=== PATIENT | female | born 2000 | race Caucasian/White ===

== ENCOUNTER 2020-02-06 13:31 | Emergency (ER) | payer BC ==
--- NOTE | 2020-02-06 14:34 | ER Document Report ---
ED General - General Chief Complaint: Vomiting/Diarrhea Stated Complaint: MIGRAINE/DIARRHEA/VOMITING Time Seen by Provider: 02/06/20 14:33 - HPI Notes: 19-year-old female presents with headache and diarrhea. Patient states that she has been experiencing a severe migraine headache for the past 2 days, states that the pain is located all over her head, radiates backwards. She has had some photosensitivity and phonosensitivity intermittently over the past 2 days. Occasionally she will feel a throbbing sensation as well. No trauma. No meds at home. Has a history of migraines but states it is been a long time since she last had one. States she additionally had onset of diarrhea 2 days ago as well, no blood in stool, having some lower abdominal cramping as well. No vomiting. No dysuria. States that her temperature at home was 100.3F. 8 weeks . - Related Data Allergies/Adverse Reactions: No Known Allergies Allergy (Verified 02/06/20 14:30) Past Medical History - General Information source: Patient - Social History Smoking Status: Unknown if Ever Smoked Family History: Reviewed & Not Pertinent Review of Systems - Review of Systems Constitutional: denies: Fever EENT: denies: Blurred vision Cardiovascular: denies: Chest pain Respiratory: denies: Cough, Short of breath Gastrointestinal: Abdominal pain, Diarrhea Genitourinary: denies: Dysuria Female Genitourinary: Vaginal bleeding Skin: No symptoms reported Hematologic/Lymphatic: No symptoms reported Neurological/Psychological: Headaches. denies: Weakness Physical Exam - Vital signs Vitals: Temp Pulse Resp BP Pulse Ox 97.7 F 98 18 127/69 H 99 02/06/20 14:10 02/06/20 14:10 02/06/20 14:10 02/06/20 14:10 02/06/20 14:10 - General General appearance: Alert In distress: None - HEENT Head: Normocephalic, Atraumatic Conjunctiva: Normal Eyelashes: Normal Pupils: PERRL - Respiratory Breath sounds: Normal - Cardiovascular Rhythm: Regular Heart sounds: Normal auscultation - Abdominal Distension: No distension Bowel sounds: Normal Tenderness: Nontender - Extremities General upper extremity: Normal ROM General lower extremity: Normal ROM. No: Edema - Neurological Neuro grossly intact: Yes Cognition: Normal Orientation: AAOx4 Speech: Normal Cranial nerves: Normal Cerebellar coordination: Normal Motor strength normal: LUE, RUE, LLE, RLE Sensory: Normal - Psychological Associated symptoms: Normal affect - Skin Skin Temperature: Warm Course - Re-evaluation Re-evalutation: 02/06/20 14:50 19-year-old female with headache and diarrhea, onset 2 days ago. She is afebrile, nontoxic-appearing, neurologically intact, abdomen without any focal areas of tenderness. Migraine headache does sound like her typical headaches, will treat with Compazine, Benadryl and fluids. Would not suspect meningitis or intracranial abnormality at this time given her exam today. Diarrhea could be viral in nature. Will obtain COVID swab. Trial bentyl. Symptomatology potentially could be related to recently restarting menstrual cycle after delivering about 8 weeks ago. Blood pressure is okay. We will also check labs and urine. 02/06/20 16:44 Labs reviewed. No significant leukocytosis. No acute anemia. Electrolytes within normal limits. Creatinine within normal limits. No elevation of T bili, LFTs okay, lipase negative. UA with blood, on menstrual cycle. UA not overtly suggestive of UTI, however given pyuria will send for culture, no symptoms. negative. 02/06/20 17:00 Reevaluated patient. She reports she is feeling much better. Discussed that, test is pending, she is to self quarantine until results. Encouraged her to continue Motrin for cramping. Will hold on prescribing Bentyl given that she is breast-feeding. Return precautions given, stable time discharge. - Vital Signs Vital signs: Temp Pulse Resp BP Pulse Ox 97.7 F 98 18 127/69 H 99 02/06/20 14:10 02/06/20 14:10 02/06/20 14:10 02/06/20 14:10 02/06/20 14:10 - Laboratory Result Diagrams: 02/06/20 15:45 02/06/20 15:45 Laboratory results interpreted by me: 02/06/20 02/06/20 02/06/20 15:20 15:45 15:45 WBC 10.8 H Lymph % (Auto) 8.7 L Absolute Neuts (auto) 9.0 H Seg Neutrophils % 83.3 H ALT 40 H Urine Protein 100 H Urine Ketones 80 H Urine Blood LARGE H Urine Urobilinogen 2.0 H Ur Leukocyte Esterase TRACE H Discharge - Discharge Clinical Impression: Diarrhea in adult patient Migraine Qualifiers: Migraine type: unspecified Status migrainosus presence: without status migrainosus Intractability: not intractable Qualified Code(s): G43.909 - Migraine, unspecified, not intractable, without status migrainosus Condition: Stable Disposition: HOME, SELF-CARE Additional Instructions: Continue Tylenol and ibuprofen for symptoms. Be sure to stay well-hydrated. Please well up with your [facility] return to the emergency department for any concerning worsening symptoms.
[2020-02-06] MEDS ORDERED: PROCHLORPERAZINE EDISYLATE INJ 10 MG/2 ML VIAL IV ONE (14:43)
[2020-02-06] MEDS ORDERED: DIPHENHYDRAMINE HCL 50 MG/ML VIAL IV ONE (14:43)
[2020-02-06] MEDS ORDERED: RINGERS SOLUTION,LACTATED 1,000 ML IV ONE (14:44)
[2020-02-06] MEDS ORDERED: DICYCLOMINE HCL 20 MG TABLET PO ONE (14:45)
[2020-02-06 16:01] LABS: APPEARANCE,URINE CLOUDY; BILIRUBIN,URINE NEGATIVE (NEGATIVE); GLUCOSE, URINE NEGATIVE (NEGATIVE); KETONES,URINE 80 mg/dL (NEGATIVE); LEUKOCYTE ESTERASE,URINE TRACE (NEGATIVE); NITRITE,URINE NEGATIVE (NEGATIVE); PROTEIN,URINE 100 mg/dL (NEGATIVE); URINE SPECIFIC GRAVITY 1.026
[2020-02-06 16:02] LABS: COLOR,URINE DARK YELLOW
[2020-02-06 16:03] LABS: ABSOLUTE LYMPHOCYTES (AUTO) 0.9 10^3/uL (0.5-4.7); ABSOLUTE MONOCYTES (AUTO) 0.8 10^3/uL (0.1-1.4); BASOPHILS % (AUTO) 0.4 % (0-2); EOSINOPHILS % (AUTO) 0.4 % (0-6); HEMATOCRIT 39.4 % (36.0-47.0); HEMOGLOBIN 13.2 g/dL (12.0-15.5); LYMPHOCYTES % (AUTO) 8.7 % (13-45); MEAN CORPUSCULAR HEMOGLOBIN 29.2 pg (27.0-33.4); MEAN CORPUSCULAR HGB CONC 33.6 g/dL (32.0-36.0); MEAN CORPUSCULAR VOLUME 87 fl (80-97); MONOCYTES % (AUTO) 7.2 % (3-13); PLATELET COUNT 214 10^3/uL (150-450); RED BLOOD COUNT 4.54 10^6/uL (3.72-5.28); RED CELL DISTRIBUTION WIDTH 12.7 % (11.5-14.0); SEGMENTED NEUTROPHILS % (AUTO) 83.3 % (42-78); TOTAL CELLS COUNTED % (AUTO) 100 %; WHITE BLOOD COUNT 10.8 10^3/uL (4.0-10.5)
[2020-02-06 16:22] LABS: ALBUMIN 4.4 g/dL (3.5-5.0); ALKALINE PHOSPHATASE 88 U/L (38-126); ANION GAP 12 (5-19); ASPARTATE AMINO TRANSFERASE 30 U/L (14-36); BILIRUBIN,DIRECT 0.3 mg/dL (0.0-0.4); BILIRUBIN,TOTAL 1.1 mg/dL (0.2-1.3); BLOOD UREA NITROGEN 12 mg/dL (7-20); CALCIUM 9.6 mg/dL (8.4-10.2); CARBON DIOXIDE 22 mmol/L (22-30); CHLORIDE 104 mmol/L (98-107); GLUCOSE 96 mg/dL (75-110); POTASSIUM 4.3 mmol/L (3.6-5.0); TOTAL PROTEIN 7.3 g/dL (6.3-8.2)
[2020-02-06 17:06] VITALS: BP 123/66
== END 2020-02-06 17:26 | disposition home or self-care (01) ==
LOC: ER 13:31
DX: G43.909 Migraine, unspecified, not intractable, without status migrainosus (principal); R19.7 Diarrhea, unspecified; H53.149 Visual discomfort, unspecified; R10.30 Lower abdominal pain, unspecified; Z20.828 Contact with and (suspected) exposure to other viral communicable diseases
CPT/HCPCS: 99284; 96361; 96374; 96375; 36415; 87086; 83690; 85025; 81025; 80053; 81001; U0003; J3490; J1200; J0780; J7120; C9803; 87635